=== PATIENT | male | born 1985 | race Hispanic/Latino ===

== ENCOUNTER 2018-12-17 11:55 | Emergency (ER) | payer SELFPAY ==
[~2018-12-17] VITALS: Ht 165.1 cm; Wt 90.7 kg
--- OUTSIDE RECORDS SUMMARY | 2018-12-17 12:00 | XMS REPORT ---
Author Author Admin, [place] Organization [facility] Address [address] [place] [phone] Phone Allergies, Adverse Reactions, Alerts Allergy Name Reaction Description Start Date Severity Status Provider No Known Allergies Russell Grubbs Conditions or Problems Problem Name Problem Code Onset Date Status Entry Date Provider Comment Standard Description Annotate Facial swelling 784.2 Active Ingrid Hidalgo MD Swelling, mass, or lump in head and neck Hx of allergic reaction V15.09 Active Ingrid Hidalgo MD Other allergy, other than to medicinal agents Std screening V74.5 Active Ingrid Hidalgo MD Screening examination for venereal disease NECK PAIN 723.1 Active Shauna Carranza MD Cervicalgia Annual exam V72.31 Active Shauna Carranza MD Routine gynecological examination Screening for diabetes mellitus V77.1 Active Shauna Carranza MD Screening for diabetes mellitus Screening for hyperlipidemia V77.91 Active Shauna Carranza MD Screening for lipoid disorders Screening for std V74.5 Active Shauna Carranza MD Screening examination for venereal disease Vaccination, flu V04.8 Active Shauna Carranza MD Need for prophylactic vaccination and inoculation against other viral diseases Constipation 564.00 Active Mango Galindo MD Constipation, unspecified advised on high fiber diet, and exercise, sending miralax Elevated blood pressure reading without diagnosis of hypertension 796.2 Active Mango Galindo MD Elevated blood pressure reading without diagnosis of hypertension has h/o HTN years ago, resolved with wt loss, has it again now after recent 80lbs wt gain, does not want to be on meds, will try lifestyle modification first. Headache 784.0 Active Mango Galindo MD Headache resolves with NSAID use, sending ibuprofen Tobacco use Active Mango Galindo MD Tobacco use disorder BIPOLAR I DISORDER, CURRENT EPISODE DEPRESSED, MODERATE Active Rashmi Garcia PMHNP Bipolar I disorder, most recent episode (or current) depressed, moderate GENERALIZED ANXIETY DISORDER Active Rashmi Garcia PMHNP Generalized anxiety disorder BMI 37.0-37.9 Active Mango Galindo MD Body Mass Index 37.0-37.9, adult Obesity Active Mango Galindo MD Obesity, unspecified Anxiety 300.00 Active Shauna Carranza MD Anxiety state, unspecified Chronic pain 338.29 Active Shauna Carranza MD Other chronic pain DEPRESSION 311 Active Shauna Carranza MD Depressive disorder, not elsewhere classified Hepatitis C 070.70 Active Shauna Carranza MD Unspecified viral hepatitis C without hepatic coma Hx of drug abuse V11.8 Active Shauna Carranza MD Personal history of other mental disorders 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 Ingrid Hidalgo MD Hereditary angioedema 277.6 Resolved Ingrid Hidalgo MD Other deficiencies of circulating enzymes Medication List Medication Instructions Start Date Stop Date Generic Name NDC Status Provider Patient Instruction MOBIC 15 MG ORAL TABLET 1 by mouth daily MELOXICAM 14209534231 Active Ingrid Hidalgo MD Active BACLOFEN 10 MG ORAL TABLET one tablet by mouth three times a day as needed for muscle spasm BACLOFEN 91289810142 Active Ingrid Hidalgo MD Active AMITRIPTYLINE HCL 50 MG ORAL TABLET Take 2 tablets By Mouth QHS AMITRIPTYLINE HCL 07361577633 Active Ingrid Hidalgo MD Active MIRALAX ORAL POWDER Disolve 17 grams in 8oz of liquid As Needed for constipation. POLYETHYLENE GLYCOL 3350 12127049175 Active Larry Mcwilliams MD (res) Active LAMICTAL 150 MG ORAL TABLET Take 2 tablets By Mouth QAM LAMOTRIGINE 28291355506 Active Ingrid Hidalgo MD Active PROPRANOLOL HCL 40 MG ORAL TABLET Take 1 tablet By Mouth BID PROPRANOLOL HCL 59322013609 Active Ingrid Hidalgo MD Active CLONAZEPAM 2 MG ORAL TABLET Take 1 tablet By Mouth BID As Needed for anxiety CLONAZEPAM 79398867017 Active Rashmi Garcia PMHNP Active AMBIEN 10 MG ORAL TABLET Take 1 tablet By Mouth QHS AMBIEN 10 MG ORAL TABLET 589644 ZOLPIDEM TARTRATE Inactive IBUPROFEN 800 MG ORAL TABLET 1 by mouth every 8 hours as needed for pain IBUPROFEN 800 MG ORAL TABLET 862892 IBUPROFEN Inactive AMITRIPTYLINE HCL 50 MG ORAL TABLET Take 1-2 By Mouth QHS AMITRIPTYLINE HCL 50 MG ORAL TABLET 009314 AMITRIPTYLINE HCL Inactive LAMICTAL 25 MG ORAL TABLET Take 1 tablet By Mouth for 2 weeks then take 2 tablets By Mouth QAM LAMICTAL 25 MG ORAL TABLET 582489 LAMOTRIGINE Inactive PAXIL CR 12.5 MG ORAL TABLET EXTENDED RELEASE 24 HOUR Take 1 tablet By Mouth QA for 1 week PAXIL CR 12.5 MG ORAL TABLET EXTENDED RELEASE 24 HOUR PAROXETINE HCL Inactive EFFEXOR XR 150 MG ORAL CAPSULE EXTENDED RELEASE 24 HOUR Take one tablet by mouth once daily EFFEXOR XR 150 MG ORAL CAPSULE EXTENDED RELEASE 24 HOUR VENLAFAXINE HCL Inactive GABAPENTIN 600 MG ORAL TABLET Take one tablet three times daily GABAPENTIN 600 MG ORAL TABLET 166676 GABAPENTIN Inactive AMBIEN 10 MG ORAL TABLET Take 1 tablet By Mouth QHS ZOLPIDEM TARTRATE 52361394310 No Longer Active Rashmi Garcia [facility] Active IBUPROFEN 800 MG ORAL TABLET 1 by mouth every 8 hours as needed for pain IBUPROFEN 00234122672 No Longer Active Shauna Carranza MD Active AMITRIPTYLINE HCL 50 MG ORAL TABLET Take 1-2 By Mouth QHS AMITRIPTYLINE HCL 87026490611 No Longer Active Rashmi Garcia [facility] Active LAMICTAL 25 MG ORAL TABLET Take 1 tablet By Mouth for 2 weeks then take 2 tablets By Mouth QAM LAMOTRIGINE 65591762771 No Longer Active Rashmi Garcia [facility] Active PAXIL CR 12.5 MG ORAL TABLET EXTENDED RELEASE 24 HOUR Take 1 tablet By Mouth QA for 1 week PAROXETINE HCL 43352370900 No Longer Active Rashmi Garcia [facility] Active EFFEXOR XR 150 MG ORAL CAPSULE EXTENDED RELEASE 24 HOUR Take one tablet by mouth once daily VENLAFAXINE HCL 86546320942 No Longer Active Shauna Carranza MD Active GABAPENTIN 600 MG ORAL TABLET Take one tablet three times daily GABAPENTIN 51208360394 No Longer Active Rashmi Garcia [facility] Active Immunizations Vaccine Administration Date Value Standard Description influenza immunization (Flu Vax) has been administered given influenza virus vaccine, unspecified formulation Vital Signs Date Name Value Unit Range Description blood pressure, diastolic, second observation 86 mm[Hg] BP patel blood pressure, diastolic 103 mm[Hg] BP patel blood pressure, systolic, second observation 154 mm[Hg] BP sys blood pressure, systolic 160 mm[Hg] BP sys pulse rate E&M 73 /min Heart rate pulse rate #2 72 Heart rate blood pressure, diastolic 84 mm[Hg] BP patel blood pressure, systolic 122 mm[Hg] BP sys pulse rate E&M 67 /min Heart rate blood pressure, diastolic 107 mm[Hg] BP patel blood pressure, systolic 151 mm[Hg] BP sys height E&M 67 [in_us] Bdy height pulse rate E&M 77 /min Heart rate weight E&M 237 [lb_av] Weight Measured blood pressure, diastolic 82 mm[Hg] BP patel blood pressure, systolic 129 mm[Hg] BP sys height E&M 67 [in_us] Bdy height pulse rate E&M 84 /min Heart rate respiratory rate E&M 19 /min Resp rate temperature E&M 98.1 [degF] Body temperature weight E&M 237 [lb_av] Weight Measured blood pressure, diastolic 87 mm[Hg] BP patel blood pressure, systolic 130 mm[Hg] BP sys height E&M 67 [in_us] Bdy height pulse rate E&M 67 /min Heart rate respiratory rate E&M 17 /min Resp rate temperature E&M 97.8 [degF] Body temperature weight E&M 242.50 [lb_av] Weight Measured blood pressure, diastolic 101 mm[Hg] BP patel blood pressure, systolic 151 mm[Hg] BP sys height E&M 67 [in_us] Bdy height pulse rate E&M 88 /min Heart rate weight E&M 246.20 [lb_av] Weight Measured blood pressure, diastolic 96 mm[Hg] BP patel blood pressure, systolic 159 mm[Hg] BP sys height E&M 67 [in_us] Bdy height pulse rate E&M 118 /min Heart rate weight E&M 249.38 [lb_av] Weight Measured Diagnostic Results Date Name Value Unit Range Description Lab Report: CBC With Differential/Platelet, Comp. Metabolic Panel (14), ... - Chemistry very low density lipoproteins 11 mg/dL 5-40 hepatitis B surface antigen Negative Negative chloride, serum 99 mmol/L 96-106 urea nitrogen, blood 10 mg/dL 6-20 Lab Report: CBC With Differential/Platelet, Comp. Metabolic Panel (14), ... - Hematology mean corpuscular hemoglobin concentration, RBC 34.1 G/DL % 31.5-35.7 erythrocyte (RBC) count 4.66 X10E6/UL 10*6/mm3 4.14-5.80 Lab Report: CBC With Differential/Platelet, Comp. Metabolic Panel (14), ... - Serology hepatitis C antibody, serum >11.0 0.0-0.9 Lab Report: CBC With Differential/Platelet, Comp. Metabolic Panel (14), ... - Chemistry Absolute Neutrophils 4.8 X10E3/UL 10*3/uL 1.4-7.0 LDL cholesterol, serum 55 mg/dL 0-99 urea nitrogen/creatinine ratio, serum 10 9-20 Lab Report: CBC With Differential/Platelet, Comp. Metabolic Panel (14), ... - Hematology mean corpuscular volume, RBC 93 fL 79-97 Lab Report: CBC With Differential/Platelet, Comp. Metabolic Panel (14), ... - Serology Hepatitis C virus (HCV) RNA, PCR, quantitative HCV Not Detected IU/mL [iU]/mL Lab Report: CBC With Differential/Platelet, Comp. Metabolic Panel (14), ... - Chemistry HDL cholesterol, serum 67 mg/dL >39 Lab Report: CBC With Differential/Platelet, Comp. Metabolic Panel (14), ... - Hematology monocytes as percent of blood leukocytes 8 % Not Estab. Lab Report: CBC With Differential/Platelet, Comp. Metabolic Panel (14), ... - Chemistry albumin/globulin ratio, serum 1.8 1.2-2.2 creatinine, serum 0.99 mg/dL 0.76-1.27 cholesterol, serum 133 mg/dL 100-199 Lab Report: CBC With Differential/Platelet, Comp. Metabolic Panel (14), ... - Serology hepatitis A antibody, IgM Negative Negative Lab Report: CBC With Differential/Platelet, Comp. Metabolic Panel (14), ... - Chemistry bilirubin, serum, total 0.3 mg/dL 0.0-1.2 Lab Report: CBC With Differential/Platelet, Comp. Metabolic Panel (14), ... - Hematology Eosinophil Absolute Count 0.5 X10E3/UL 10*3/uL 0.0-0.4 Lab Report: CBC With Differential/Platelet, Comp. Metabolic Panel (14), ... - Lab chlamydia DNA probe Negative Negative Lab Report: CBC With Differential/Platelet, Comp. Metabolic Panel (14), ... - Chemistry aspartate aminotransferase (SGOT), serum 24 U/L 0-40 Lab Report: CBC With Differential/Platelet, Comp. Metabolic Panel (14), ... - Hematology red blood cell distribution width 13.9 % 12.3-15.4 leukocyte count, blood 9.1 X10E3/UL 10*3/mm3 3.4-10.8 Lab Report: CBC With Differential/Platelet, Comp. Metabolic Panel (14), ... - Chemistry potassium, serum 4.8 mmol/L 3.5-5.2 albumin, serum 4.9 g/dL 3.5-5.5 immature granulocytes, percentage of total cells, blood 0 % Not Estab. Lab Report: CBC With Differential/Platelet, Comp. Metabolic Panel (14), ... - Hematology lymphocyte count, blood, automated 3.0 X10E3/UL 10*3/mm3 0.7-3.1 hematocrit, blood 43.4 % 37.5-51.0 Lab Report: CBC With Differential/Platelet, Comp. Metabolic Panel (14), ... - Microbiology Neisseria gonorrhoeae DNA probe Negative Negative Lab Report: CBC With Differential/Platelet, Comp. Metabolic Panel (14), ... - Chemistry sodium, serum 140 mmol/L 134-144 Lab Report: CBC With Differential/Platelet, Comp. Metabolic Panel (14), ... - Hematology neutrophils as percent of blood leukocytes 53 % Not Estab. basophils as percent of blood leukocytes 1 % Not Estab. Lab Report: CBC With Differential/Platelet, Comp. Metabolic Panel (14), ... - Serology rapid plasma reagin antibody, serum Non Reactive Non Reactive Lab Report: CBC With Differential/Platelet, Comp. Metabolic Panel (14), ... - Chemistry carbon dioxide, venous blood 26 mmol/L 20-29 triglyceride, serum, fasting 57 mg/dL 0-149 calcium, serum 9.6 mg/dL 8.7-10.2 alanine aminotransferase (SGPT), serum 17 U/L 0-44 Lab Report: CBC With Differential/Platelet, Comp. Metabolic Panel (14), ... - Hematology mean corpuscular hemoglobin, RBC 31.8 pg 26.6-33.0 Lab Report: CBC With Differential/Platelet, Comp. Metabolic Panel (14), ... - Chemistry protein, total, serum 7.7 g/dL 6.0-8.5 alkaline phosphatase, serum 82 U/L 39-117 Lab Report: CBC With Differential/Platelet, Comp. Metabolic Panel (14), ... - Hematology hemoglobin, blood 14.8 g/dL 13.0-17.7 lymphocytes as percent of blood leukocytes 33 % Not Estab. Lab Report: CBC With Differential/Platelet, Comp. Metabolic Panel (14), ... - Chemistry hemoglobin A1C, blood, as % of total hemoglobin 5.5 % 4.8-5.6 Lab Report: CBC With Differential/Platelet, Comp. Metabolic Panel (14), ... - Genetics/fertility eGFR if 114 mL/min/1.73m2 >59 Lab Report: CBC With Differential/Platelet, Comp. Metabolic Panel (14), ... - Serology hepatitis B virus core antibody, IgM, PT, serum, quantitative Negative Negative Lab Report: CBC With Differential/Platelet, Comp. Metabolic Panel (14), ... - Hematology basophil count, absolute 0.1 x10E3/uL 0.0-0.2 Lab Report: CBC With Differential/Platelet, Comp. Metabolic Panel (14), ... - Chemistry globulin, serum 2.8 1.5-4.5 Estimated Glomerular Filtration Rate (calc) 98 mL/min/1.73m2 >59 Lab Report: CBC With Differential/Platelet, Comp. Metabolic Panel (14), ... - Hematology eosinophils as percent of blood leukocytes 5 % Not Estab. Lab Report: CBC With Differential/Platelet, Comp. Metabolic Panel (14), ... - Chemistry blood glucose, random 93 mg/dL 65-99 Lab Report: CBC With Differential/Platelet, Comp. Metabolic Panel (14), ... - Hematology monocyte count, blood, automated 0.7 X10E3/UL 10*3/uL 0.1-0.9 platelet count 285 X10E3/UL 10*3/mm3 150-379 Encounters Date Encounter Provider Code Facility 11:28:49 CDT Est Patient Exp Problem - 53947 Rashmi Garcia [facility] CPT-60386 [facility] 13:34:20 CDT Est Patient Detailed - 54471 Ingrid Hidalgo MD CPT-31208 [facility] 22:59:39 CDT Est Patient Detailed - 10352 Ingrid Hidalgo MD CPT-48157 [facility] 08:22:39 CDT Est Patient Exp Problem - 03419 Rashmi Garcia PMHNP CPT-82865 [facility] 09:51:04 [employer] Est Patient Exp Problem - 29962 Rashmi Garcia PMHNP CPT-12796 [facility] 12:22:57 CDT Est Patient Exp Problem - 42647 Rashmi Garcia PMHNP CPT-83230 [facility] 15:46:53 CDT Est Patient Problem Focus - 15491 Shauna Carranza MD CPT-89188 [facility] 13:01:36 CDT Est Patient Exp Problem - 66209 Shauna Carranza MD CPT-14776 [facility] 09:21:28 [employer]IST[employer] Est Patient Exp Problem - 41286 Rashmi Garcia PMHN CPT-43109 [facility] 09:23:21 [employer] ASSISTANT Est Patient Exp Problem - 84375 [facility] 11:59:53 CDT Est Patient Exp Problem - 68125 Rashmi Garcia [facility] CPT-78550 [facility] 15:27:50 CDT Est Patient Exp Problem - 33247 Mango Galindo MD CPT-24369 [facility] 09:23:27 CDT Est Patient Exp Problem - 76863 Rashmi Garcia [facility] CPT-11645 [facility] 16:33:31 CDT Est Patient Exp Problem - 97328 Mango Galindo MD CPT-97224 [facility] 17:14:13 CDT Est Patient Exp Problem - 03959 Shauna Carranza MD CPT-19079 [facility] 14:37:58 CDT New Patient Exp Problem - 69048 Shauna Carranza MD CPT-99391 [facility] Procedures Code Procedure Name Date Entry Date Standard Description CPT-38224 IM or SQ Injection 13:34:20 CDT CPT-J1885 Injection, ketorolac tromethamine (toradol), per 15 mg 13:34:20 CDT CPT-J8499 Oral / SL / AR 13:34:20 CDT CPT-A9150 Diphenhydramine (Benadryl) 25 mg 13:34:20 CDT CPT-26257 INFLUENZA VACCINE QUADRIVALENT 3 YRS PLUS IM 11:50:27 [employer] CPT-05089 Est Patient Well Exam (18 - 39 Yrs) - 79968 11:50:15 [employer]TE[employer]ER ASSISTANT CPT-23552 Psychotherapy 30 (16-37*) min - 28967 (with patient and/or family member) 21:42:07 CDT CPT-83471 Diagnostic evaluation (no medical) - 56677 09:36:42 CDT CPT-09142 Diagnostic evaluation with medical - 26565 10:54:23 CDT
--- OUTSIDE RECORDS SUMMARY | 2018-12-17 12:01 | XMS REPORT ---
Author Author [facility] Address Unknown Phone Unavailable Care Team Providers Care Government Relations Analyst Name Role Phone Unavailable Unavailable Payers Payer Name Policy Type Policy Number Effective Date Expiration Date Problems This patient has no known problems. Allergies, Adverse Reactions, Alerts Allergy Name Allergy Type Status Severity Reaction(s) Onset Date Inactive Date Treating Clinician Comments No Known Allergies DA Active U 2018-12-01 00:00:00 No Known Allergies DA Active U 2018-10-09 00:00:00 No Known Allergies DA Active U 2015-10-30 00:00:00 Medications This patient has no known medications. Results Test Description Test Time Test Comments Text Results Atomic Results Result Comments BASIC METABOLIC PANEL 2018-12-15 08:52:00 SODIUM (test code=NA) 137 mEq/L 134-147 POTASSIUM (test code=K) 3.6 mEq/L 3.4-5.0 CHLORIDE (test code=CL) 105 mEq/L 100-108 CARBON DIOXIDE (test code=CO2) 25 mEq/L 21-33 ANION GAP (test code=GAP) 11 0-20 GLUCOSE (test code=GLU) 88 mg/dL 70-110 BLOOD UREA NITROGEN (test code=BUN) 15 mg/dL 7-18 GLOMERULAR FILTRATION RATE (test code=GFR) 110.0 105-110 Units of measure=ml/min/1.73 m2 CREATININE (test code=CREAT) 0.8 mg/dL 0.6-1.3 CALCIUM (test code=CA) 9.1 mg/dL 8.0-10.5 CBC W/AUTO [id number] 07:23:00* Test Item Value Reference Range Comments WHITE BLOOD CELL (test code=WBC) 9.50 x10 3/uL 4.5-11.0 RED BLOOD CELL (test code=RBC) 4.57 x10 6/uL 4.00-5.60 HEMOGLOBIN (test code=HGB) 14.1 g/dL 12.5-16.9 HEMATOCRIT (test code=HCT) 42.8 % 37.5-50.7 MEAN CELL VOLUME (test code=MCV) 93.7 fL 81.0-99.0 MEAN CELL HGB (test code=MCH) 30.9 pg 27.0-33.0 MEAN CELL HGB CONCETRATION (test code=MCHC) 32.9 g/dL 33.0-37.0 RED CELL DISTRIBUTION WIDTH CV (test code=RDW) 13.1 % 11.5-14.5 RED CELL DISTRIBUTION WIDTH SD (test code=RDW-SD) 45.0 fL 37.0-54.0 PLATELET COUNT (test code=PLT) 389 x10 3/uL 150-400 MEAN PLATELET VOLUME (test code=MPV) 10.9 fL 7.0-9.0 NEUTROPHIL % (test code=NT%) 52.5 % 56.0-77.0 IMMATURE GRANULOCYTE % (test code=IG%) 0.8 % 0.0-2.0 LYMPHOCYTE % (test code=LY%) 34.2 % 14.0-32.0 MONOCYTE % (test code=MO%) 9.4 % 4.8-9.0 EOSINOPHIL % (test code=EO%) 2.5 % 0.3-3.7 BASOPHIL % (test code=BA%) 0.6 % 0.0-2.0 NUCLEATED RBC % (test code=NRBC%) 0.0 % 0-0 NEUTROPHIL # (test code=NT#) 4.98 x10 3/uL 2.0-7.6 IMMATURE GRANULOCYTE # (test code=IG#) 0.08 x10 3/uL 0.00-0.03 LYMPHOCYTE # (test code=LY#) 3.25 x10 3/uL 1.0-3.8 MONOCYTE # (test code=MO#) 0.89 x10 3/uL 0.1-0.8 EOSINOPHIL # (test code=EO#) 0.24 x10 3/uL 0.0-0.2 BASOPHIL # (test code=BA#) 0.06 x10 3/uL 0.0-0.2 NUCLEATED RBC # (test code=NRBC#) 0.00 x10 3/uL 0.0-0.1 MANUAL DIFF REQUIRED (test code=MDIFF) NO BASIC METABOLIC [id number] 09:10:00* Test Item Value Reference Range Comments SODIUM (test code=NA) 139 mEq/L 134-147 POTASSIUM (test code=K) 3.5 mEq/L 3.4-5.0 CHLORIDE (test code=CL) 106 mEq/L 100-108 CARBON DIOXIDE (test code=CO2) 27 mEq/L 21-33 ANION GAP (test code=GAP) 10 0-20 GLUCOSE (test code=GLU) 107 mg/dL 70-110 BLOOD UREA NITROGEN (test code=BUN) 16 mg/dL 7-18 GLOMERULAR FILTRATION RATE (test code=GFR) 96.0 105-110 Units of measure=ml/min/1.73 m2 CREATININE (test code=CREAT) 0.9 mg/dL 0.6-1.3 CALCIUM (test code=CA) 9.1 mg/dL 8.0-10.5 CBC W/AUTO [id number] 08:30:00* Test Item Value Reference Range Comments WHITE BLOOD CELL (test code=WBC) 8.82 x10 3/uL 4.5-11.0 RED BLOOD CELL (test code=RBC) 4.56 x10 6/uL 4.00-5.60 HEMOGLOBIN (test code=HGB) 14.3 g/dL 12.5-16.9 HEMATOCRIT (test code=HCT) 43.0 % 37.5-50.7 MEAN CELL VOLUME (test code=MCV) 94.3 fL 81.0-99.0 MEAN CELL HGB (test code=MCH) 31.4 pg 27.0-33.0 MEAN CELL HGB CONCETRATION (test code=MCHC) 33.3 g/dL 33.0-37.0 RED CELL DISTRIBUTION WIDTH CV (test code=RDW) 13.2 % 11.5-14.5 RED CELL DISTRIBUTION WIDTH SD (test code=RDW-SD) 45.6 fL 37.0-54.0 PLATELET COUNT (test code=PLT) 289 x10 3/uL 150-400 MEAN PLATELET VOLUME (test code=MPV) 10.6 fL 7.0-9.0 NEUTROPHIL % (test code=NT%) 49.9 % 56.0-77.0 IMMATURE GRANULOCYTE % (test code=IG%) 2.2 % 0.0-2.0 LYMPHOCYTE % (test code=LY%) 32.0 % 14.0-32.0 MONOCYTE % (test code=MO%) 11.6 % 4.8-9.0 EOSINOPHIL % (test code=EO%) 3.7 % 0.3-3.7 BASOPHIL % (test code=BA%) 0.6 % 0.0-2.0 NUCLEATED RBC % (test code=NRBC%) 0.0 % 0-0 NEUTROPHIL # (test code=NT#) 4.41 x10 3/uL 2.0-7.6 IMMATURE GRANULOCYTE # (test code=IG#) 0.19 x10 3/uL 0.00-0.03 LYMPHOCYTE # (test code=LY#) 2.82 x10 3/uL 1.0-3.8 MONOCYTE # (test code=MO#) 1.02 x10 3/uL 0.1-0.8 EOSINOPHIL # (test code=EO#) 0.33 x10 3/uL 0.0-0.2 BASOPHIL # (test code=BA#) 0.05 x10 3/uL 0.0-0.2 NUCLEATED RBC # (test code=NRBC#) 0.00 x10 3/uL 0.0-0.1 MANUAL DIFF REQUIRED (test code=MDIFF) NO BASIC METABOLIC [id number] 06:02:00* Test Item Value Reference Range Comments SODIUM (test code=NA) 137 mEq/L 134-147 POTASSIUM (test code=K) 3.9 mEq/L 3.4-5.0 CHLORIDE (test code=CL) 104 mEq/L 100-108 CARBON DIOXIDE (test code=CO2) 29 mEq/L 21-33 ANION GAP (test code=GAP) 8 0-20 GLUCOSE (test code=GLU) 87 mg/dL 70-110 BLOOD UREA NITROGEN (test code=BUN) 16 mg/dL 7-18 GLOMERULAR FILTRATION RATE (test code=GFR) 110.0 105-110 Units of measure=ml/min/1.73 m2 CREATININE (test code=CREAT) 0.8 mg/dL 0.6-1.3 CALCIUM (test code=CA) 9.2 mg/dL 8.0-10.5 CBC W/AUTO [id number] 05:22:00* Test Item Value Reference Range Comments WHITE BLOOD CELL (test code=WBC) 8.73 x10 3/uL 4.5-11.0 RED BLOOD CELL (test code=RBC) 4.56 x10 6/uL 4.00-5.60 HEMOGLOBIN (test code=HGB) 14.2 g/dL 12.5-16.9 HEMATOCRIT (test code=HCT) 42.8 % 37.5-50.7 MEAN CELL VOLUME (test code=MCV) 93.9 fL 81.0-99.0 MEAN CELL HGB (test code=MCH) 31.1 pg 27.0-33.0 MEAN CELL HGB CONCETRATION (test code=MCHC) 33.2 g/dL 33.0-37.0 RED CELL DISTRIBUTION WIDTH CV (test code=RDW) 13.6 % 11.5-14.5 RED CELL DISTRIBUTION WIDTH SD (test code=RDW-SD) 47.0 fL 37.0-54.0 PLATELET COUNT (test code=PLT) 269 x10 3/uL 150-400 MEAN PLATELET VOLUME (test code=MPV) 10.8 fL 7.0-9.0 NEUTROPHIL % (test code=NT%) 49.9 % 56.0-77.0 IMMATURE GRANULOCYTE % (test code=IG%) 3.0 % 0.0-2.0 LYMPHOCYTE % (test code=LY%) 30.9 % 14.0-32.0 MONOCYTE % (test code=MO%) 9.5 % 4.8-9.0 EOSINOPHIL % (test code=EO%) 5.8 % 0.3-3.7 BASOPHIL % (test code=BA%) 0.9 % 0.0-2.0 NUCLEATED RBC % (test code=NRBC%) 0.0 % 0-0 NEUTROPHIL # (test code=NT#) 4.35 x10 3/uL 2.0-7.6 IMMATURE GRANULOCYTE # (test code=IG#) 0.26 x10 3/uL 0.00-0.03 LYMPHOCYTE # (test code=LY#) 2.70 x10 3/uL 1.0-3.8 MONOCYTE # (test code=MO#) 0.83 x10 3/uL 0.1-0.8 EOSINOPHIL # (test code=EO#) 0.51 x10 3/uL 0.0-0.2 BASOPHIL # (test code=BA#) 0.08 x10 3/uL 0.0-0.2 NUCLEATED RBC # (test code=NRBC#) 0.00 x10 3/uL 0.0-0.1 MANUAL DIFF REQUIRED (test code=MDIFF) NO [id number] 12:11:00* Test Item Value Reference Range Comments POTASSIUM (test code=K) 4.5 mEq/L 3.4-5.0 SPECIMEN 1+ HEMOLYZED.Results known to be adversely affected by hemolysis are: Potassium Magnesium LDH Phosphorus [id number] 12:11:00* Test Item Value Reference Range Comments PHOSPHOROUS (test code=PHOS) 3.3 mg/dL 2.5-4.9 [id number] 12:05:00* Test Item Value Reference Range Comments POTASSIUM (test code=K) 4.5 mEq/L 3.4-5.0 SPECIMEN 1+ HEMOLYZED.Results known to be adversely affected by hemolysis are: Potassium Magnesium LDH Phosphorus [id number] 12:05:00* Test Item Value Reference Range Comments PHOSPHOROUS (test code=PHOS) mg/dL 2.5-4.9 [id number] 16:33:00* Test Item Value Reference Range Comments POTASSIUM (test code=K) 3.8 mEq/L 3.4-5.0 BASIC METABOLIC [id number] 04:24:00* Test Item Value Reference Range Comments SODIUM (test code=NA) 141 mEq/L 134-147 POTASSIUM (test code=K) 2.9 mEq/L 3.4-5.0 CHLORIDE (test code=CL) 106 mEq/L 100-108 CARBON DIOXIDE (test code=CO2) 31 mEq/L 21-33 ANION GAP (test code=GAP) 7 0-20 GLUCOSE (test code=GLU) 105 mg/dL 70-110 BLOOD UREA NITROGEN (test code=BUN) 3 mg/dL 7-18 GLOMERULAR FILTRATION RATE (test code=GFR) 153.3 105-110 Units of measure=ml/min/1.73 m2 CREATININE (test code=CREAT) 0.6 mg/dL 0.6-1.3 CALCIUM (test code=CA) 7.9 mg/dL 8.0-10.5 [id number] 04:24:00* Test Item Value Reference Range Comments PHOSPHOROUS (test code=PHOS) 2.3 mg/dL 2.5-4.9 [id number] 04:24:00* Test Item Value Reference Range Comments MAGNESIUM (test code=MAG) 2.20 mg/dL 1.8-2.4 HEPATIC FUNCTION [id number] 04:24:00* Test Item Value Reference Range Comments TOTAL PROTEIN (test code=PROT) 6.3 g/dL 6.4-8.2 ALBUMIN (test code=ALB) 3.00 g/dL 3.4-5.0 BILIRUBIN TOTAL (test code=BILT) 0.30 mg/dL 0.0-1.0 BILIRUBIN DIRECT (test code=BILD) < 0.10 MG/DL 0.0-0.30 BILIRUBIN INDIRECT (test code=BILIND) 0.20 MG/DL SGOT/AST (test code=AST) 11 IUnit/L 15-37 SGPT/ALT (test code=ALT) 19 IUnit/L 15-65 ALKALINE PHOSPHATASE TOTAL (test code=ALKP) 75 IUnit/L 20-125 CBC W/AUTO [id number] 04:05:00* Test Item Value Reference Range Comments WHITE BLOOD CELL (test code=WBC) 8.28 x10 3/uL 4.5-11.0 RED BLOOD CELL (test code=RBC) 4.17 x10 6/uL 4.00-5.60 HEMOGLOBIN (test code=HGB) 12.9 g/dL 12.5-16.9 HEMATOCRIT (test code=HCT) 39.0 % 37.5-50.7 MEAN CELL VOLUME (test code=MCV) 93.5 fL 81.0-99.0 MEAN CELL HGB (test code=MCH) 30.9 pg 27.0-33.0 MEAN CELL HGB CONCETRATION (test code=MCHC) 33.1 g/dL 33.0-37.0 RED CELL DISTRIBUTION WIDTH CV (test code=RDW) 13.6 % 11.5-14.5 RED CELL DISTRIBUTION WIDTH SD (test code=RDW-SD) 46.7 fL 37.0-54.0 PLATELET COUNT (test code=PLT) 167 x10 3/uL 150-400 MEAN PLATELET VOLUME (test code=MPV) 10.7 fL 7.0-9.0 NEUTROPHIL % (test code=NT%) 59.8 % 56.0-77.0 IMMATURE GRANULOCYTE % (test code=IG%) 0.6 % 0.0-2.0 LYMPHOCYTE % (test code=LY%) 27.3 % 14.0-32.0 MONOCYTE % (test code=MO%) 9.2 % 4.8-9.0 EOSINOPHIL % (test code=EO%) 2.7 % 0.3-3.7 BASOPHIL % (test code=BA%) 0.4 % 0.0-2.0 NUCLEATED RBC % (test code=NRBC%) 0.0 % 0-0 NEUTROPHIL # (test code=NT#) 4.96 x10 3/uL 2.0-7.6 IMMATURE GRANULOCYTE # (test code=IG#) 0.05 x10 3/uL 0.00-0.03 LYMPHOCYTE # (test code=LY#) 2.26 x10 3/uL 1.0-3.8 MONOCYTE # (test code=MO#) 0.76 x10 3/uL 0.1-0.8 EOSINOPHIL # (test code=EO#) 0.22 x10 3/uL 0.0-0.2 BASOPHIL # (test code=BA#) 0.03 x10 3/uL 0.0-0.2 NUCLEATED RBC # (test code=NRBC#) 0.00 x10 3/uL 0.0-0.1 MANUAL DIFF REQUIRED (test code=MDIFF) NO VENOUS BLOOD [id number] 17:44:00* Test Item Value Reference Range Comments VENOUS BLOOD GAS PH (test code=PHV) 7.45 7.33-7.45 VENOUS BLOOD GAS PCO2 (test code=PCO2V) 40 mmHg 43-47 VENOUS BLOOD GAS PO2 (test code=PO2V) 50 mmHg 10-50 VBG HCO3 (test code=HCO3V) 27.5 mmol/L 22-27 VBG BASE EXCESS (test code=KECIA) 3.0 mmol/L -4.0-4.0 VENOUS BLOOD GAS O2 SAT. (test code=O2SATV) 87 % 60-80 VENOUS BLOOD GAS DELIVERY (test code=DELV) Room Air Performed by certified vortex operator at [facility] VENOUS BLOOD GAS TEMP (test code=TEMPV) 98.0 F VENOUS BLOOD GAS SITE (test code=SITEV) R Brach VENOUS TCO2 (test code=TCO2V) 29 BASIC METABOLIC [id number] 17:07:00* Test Item Value Reference Range Comments SODIUM (test code=NA) 141 mEq/L 134-147 POTASSIUM (test code=K) 3.0 mEq/L 3.4-5.0 CHLORIDE (test code=CL) 105 mEq/L 100-108 CARBON DIOXIDE (test code=CO2) 29 mEq/L 21-33 ANION GAP (test code=GAP) 10 0-20 GLUCOSE (test code=GLU) 127 mg/dL 70-110 BLOOD UREA NITROGEN (test code=BUN) 4 mg/dL 7-18 GLOMERULAR FILTRATION RATE (test code=GFR) 128.3 105-110 Units of measure=ml/min/1.73 m2 CREATININE (test code=CREAT) 0.7 mg/dL 0.6-1.3 CALCIUM (test code=CA) 7.7 mg/dL 8.0-10.5 [id number] 17:07:00* Test Item Value Reference Range Comments PHOSPHOROUS (test code=PHOS) 1.7 mg/dL 2.5-4.9 [id number] 17:07:00* Test Item Value Reference Range Comments MAGNESIUM (test code=MAG) 2.20 mg/dL 1.8-2.4 CALCIUM [id number] 17:07:00* Test Item Value Reference Range Comments CALCIUM IONIZED (test code=OMAYRA) MMOL/L 1.12-1.32 BASIC METABOLIC [id number] 17:07:00* Test Item Value Reference Range Comments SODIUM (test code=NA) 141 mEq/L 134-147 POTASSIUM (test code=K) 3.0 mEq/L 3.4-5.0 CHLORIDE (test code=CL) 105 mEq/L 100-108 CARBON DIOXIDE (test code=CO2) 29 mEq/L 21-33 ANION GAP (test code=GAP) 10 0-20 GLUCOSE (test code=GLU) 127 mg/dL 70-110 BLOOD UREA NITROGEN (test code=BUN) 4 mg/dL 7-18 GLOMERULAR FILTRATION RATE (test code=GFR) 128.3 105-110 Units of measure=ml/min/1.73 m2 CREATININE (test code=CREAT) 0.7 mg/dL 0.6-1.3 CALCIUM (test code=CA) 7.7 mg/dL 8.0-10.5 [id number] 17:07:00* Test Item Value Reference Range Comments PHOSPHOROUS (test code=PHOS) 1.7 mg/dL 2.5-4.9 [id number] 17:07:00* Test Item Value Reference Range Comments MAGNESIUM (test code=MAG) 2.20 mg/dL 1.8-2.4 CALCIUM [id number] 17:07:00* Test Item Value Reference Range Comments CALCIUM IONIZED (test code=OMAYRA) 1.10 MMOL/L 1.12-1.32 HEPATIC FUNCTION [id number] 11:27:00* Test Item Value Reference Range Comments TOTAL PROTEIN (test code=PROT) 6.1 g/dL 6.4-8.2 ALBUMIN (test code=ALB) 3.10 g/dL 3.4-5.0 BILIRUBIN TOTAL (test code=BILT) 0.40 mg/dL 0.0-1.0 BILIRUBIN DIRECT (test code=BILD) 0.10 MG/DL 0.0-0.30 BILIRUBIN INDIRECT (test code=BILIND) 0.30 MG/DL SGOT/AST (test code=AST) 19 IUnit/L 15-37 SGPT/ALT (test code=ALT) 23 IUnit/L 15-65 ALKALINE PHOSPHATASE TOTAL (test code=ALKP) 79 IUnit/L 20-125 - XR CHEST 1 [id number] 08:21:00 FAX: Cordell Obregon MD [place]: St: ADM FAX: Jessenia Olvera [phone] Name: ARCELIA JOHNSON [facility] : 1985 Age/S: 33/M [address] [place] [address] Unit #: [id number] Loc: [address] [address] Phys: Cordell Obregon MD Acct: [id number] Dis Date: Status: ADM IN PHONE #: [phone] Exam Date: 12/02/2018 0546 FAX #: [phone] Reason: PNEUMONIA EXAMS: CPT CODE: [id number] XR CHEST 1 V [id number] Study: - XR CHEST 1 V 12/02/2018 5:00 AM Patient Name: ARCELIA JOHNSON MR: [id number] : 1985; Age: 33 years y/o Male Ordering Physician: Cordell Obregon MD Clinical Indication: PNEUMONIA Comparison: None FINDINGS LUNGS: The hypoinflated lungs are clear of consolidation, pleural effusion, and pneumothorax. HEART AND MEDIASTINUM: Mildly enlarged heart. LINES: None. OSSEOUS STRUCTURES: No fracture, dislocation, or suspicious focal osseous lesion. OTHER: None. IMPRESSION: Mild cardiomegaly with or without pericardial effusion SL: [id number] at 0821 Reported and signed by: Fili Dupree M.D. CC: Cordell Obregon MD; Kimmy Olvera MD Technologist: Jazmyne Todd RT(R) [facility] Date/Time/By: 12/02/2018 (0821) : By: [email or web address] Orig Print D/T: S: 12/02/2018 (8988) PAGE 1 Signed Report BASIC METABOLIC [id number] 05:12:00* Test Item Value Reference Range Comments SODIUM (test code=NA) 140 mEq/L 134-147 POTASSIUM (test code=K) 2.8 mEq/L 3.4-5.0 CHLORIDE (test code=CL) 103 mEq/L 100-108 CARBON DIOXIDE (test code=CO2) 29 mEq/L 21-33 ANION GAP (test code=GAP) 11 0-20 GLUCOSE (test code=GLU) 114 mg/dL 70-110 BLOOD UREA NITROGEN (test code=BUN) 9 mg/dL 7-18 GLOMERULAR FILTRATION RATE (test code=GFR) 189.2 105-110 Units of measure=ml/min/1.73 m2 CREATININE (test code=CREAT) 0.5 mg/dL 0.6-1.3 CALCIUM (test code=CA) 7.5 mg/dL 8.0-10.5 [id number] 05:12:00* Test Item Value Reference Range Comments PHOSPHOROUS (test code=PHOS) 2.0 mg/dL 2.5-4.9 [id number] 05:12:00* Test Item Value Reference Range Comments MAGNESIUM (test code=MAG) 2.20 mg/dL 1.8-2.4 CBC W/AUTO [id number] 04:34:00* Test Item Value Reference Range Comments WHITE BLOOD CELL (test code=WBC) 14.07 x10 3/uL 4.5-11.0 RED BLOOD CELL (test code=RBC) 4.10 x10 6/uL 4.00-5.60 HEMOGLOBIN (test code=HGB) 12.8 g/dL 12.5-16.9 HEMATOCRIT (test code=HCT) 38.1 % 37.5-50.7 MEAN CELL VOLUME (test code=MCV) 92.9 fL 81.0-99.0 MEAN CELL HGB (test code=MCH) 31.2 pg 27.0-33.0 MEAN CELL HGB CONCETRATION (test code=MCHC) 33.6 g/dL 33.0-37.0 RED CELL DISTRIBUTION WIDTH CV (test code=RDW) 13.4 % 11.5-14.5 RED CELL DISTRIBUTION WIDTH SD (test code=RDW-SD) 45.6 fL 37.0-54.0 PLATELET COUNT (test code=PLT) 178 x10 3/uL 150-400 MEAN PLATELET VOLUME (test code=MPV) 10.7 fL 7.0-9.0 NEUTROPHIL % (test code=NT%) 82.7 % 56.0-77.0 IMMATURE GRANULOCYTE % (test code=IG%) 0.5 % 0.0-2.0 LYMPHOCYTE % (test code=LY%) 8.3 % 14.0-32.0 MONOCYTE % (test code=MO%) 7.9 % 4.8-9.0 EOSINOPHIL % (test code=EO%) 0.4 % 0.3-3.7 BASOPHIL % (test code=BA%) 0.2 % 0.0-2.0 NUCLEATED RBC % (test code=NRBC%) 0.0 % 0-0 NEUTROPHIL # (test code=NT#) 11.64 x10 3/uL 2.0-7.6 IMMATURE GRANULOCYTE # (test code=IG#) 0.07 x10 3/uL 0.00-0.03 LYMPHOCYTE # (test code=LY#) 1.17 x10 3/uL 1.0-3.8 MONOCYTE # (test code=MO#) 1.11 x10 3/uL 0.1-0.8 EOSINOPHIL # (test code=EO#) 0.05 x10 3/uL 0.0-0.2 BASOPHIL # (test code=BA#) 0.03 x10 3/uL 0.0-0.2 NUCLEATED RBC # (test code=NRBC#) 0.00 x10 3/uL 0.0-0.1 MANUAL DIFF REQUIRED (test code=MDIFF) NO ARTERIAL BLOOD [id number] 16:46:00* Test Item Value Reference Range Comments ARTERIAL BLOOD GAS PH (test code=PHA) 7.416 7.35-7.45 ARTERIAL BLOOD GAS PCO2 (test code=PCO2A) 39.8 mmHg 35-45 ARTERIAL BLOOD GAS PO2 (test code=PO2A) 59 mmHg 80-100 BICARBONATE TOTAL HCO3 (test code=HCO3) 25.7 mmol/L 22.0-26.0 BASE EXCESS (test code=GALILEO) 1.0 mmol/L -4-4 ABG O2 SATURATION (test code=SATA) 91 % 90-100 FIO2 (test code=FIO2A) 50 % ABG DELIVERY (test code=DMITRI) Vent ABG VENT MODE (test code=MODEA) AC v con ABG VENT RESP RATE (test code=RRA) 18 /MIN ABG TIDAL VOLUME (test code=TVA) 500 ml ABG PEEP (test code=PEEPA) 5 cmH2O Performed by certified vortex operator at [facility] ABG TEMPERATURE (test code=TEMPA) 98.0 F ABG SITE (test code=SITEA) R Rad PREDICTED AA GRADIENT (test code=AP) 80 PREDICTED PO2 (test code=OP) 229 a/A RATIO (test code=RATIO) 0.19 TCO2 ARTERIAL (test code=TCO2A) 27 A-A GRADIENT (test code=AAGRADE) 250 COMPREHENSIVE METABOLIC [id number] 11:58:00* Test Item Value Reference Range Comments SODIUM (test code=NA) 140 mEq/L 134-147 POTASSIUM (test code=K) 3.0 mEq/L 3.4-5.0 CHLORIDE (test code=CL) 103 mEq/L 100-108 CARBON DIOXIDE (test code=CO2) 27 mEq/L 21-33 ANION GAP (test code=GAP) 13 0-20 GLUCOSE (test code=GLU) 141 mg/dL 70-110 BLOOD UREA NITROGEN (test code=BUN) 15 mg/dL 7-18 GLOMERULAR FILTRATION RATE (test code=GFR) 110.0 105-110 Units of measure=ml/min/1.73 m2 CREATININE (test code=CREAT) 0.8 mg/dL 0.6-1.3 TOTAL PROTEIN (test code=PROT) 6.7 g/dL 6.4-8.2 ALBUMIN (test code=ALB) 3.60 g/dL 3.4-5.0 CALCIUM (test code=CA) 7.8 mg/dL 8.0-10.5 BILIRUBIN TOTAL (test code=BILT) 0.70 mg/dL 0.0-1.0 SGOT/AST (test code=AST) 30 IUnit/L 15-37 SGPT/ALT (test code=ALT) 25 IUnit/L 15-65 ALKALINE PHOSPHATASE TOTAL (test code=ALKP) 85 IUnit/L 20-125 [id number] 11:58:00* Test Item Value Reference Range Comments PHOSPHOROUS (test code=PHOS) 1.8 mg/dL 2.5-4.9 CALCIUM [id number] 11:58:00* Test Item Value Reference Range Comments CALCIUM IONIZED (test code=OMAYRA) 1.05 MMOL/L 1.12-1.32 COMPREHENSIVE METABOLIC [id number] 11:56:00* Test Item Value Reference Range Comments SODIUM (test code=NA) 140 mEq/L 134-147 POTASSIUM (test code=K) 3.0 mEq/L 3.4-5.0 CHLORIDE (test code=CL) 103 mEq/L 100-108 CARBON DIOXIDE (test code=CO2) 27 mEq/L 21-33 ANION GAP (test code=GAP) 13 0-20 GLUCOSE (test code=GLU) 141 mg/dL 70-110 BLOOD UREA NITROGEN (test code=BUN) 15 mg/dL 7-18 GLOMERULAR FILTRATION RATE (test code=GFR) 110.0 105-110 Units of measure=ml/min/1.73 m2 CREATININE (test code=CREAT) 0.8 mg/dL 0.6-1.3 TOTAL PROTEIN (test code=PROT) g/dL 6.4-8.2 ALBUMIN (test code=ALB) 3.60 g/dL 3.4-5.0 CALCIUM (test code=CA) 7.8 mg/dL 8.0-10.5 BILIRUBIN TOTAL (test code=BILT) mg/dL 0.0-1.0 SGOT/AST (test code=AST) 30 IUnit/L 15-37 SGPT/ALT (test code=ALT) 25 IUnit/L 15-65 ALKALINE PHOSPHATASE TOTAL (test code=ALKP) IUnit/L 20-125 [id number] 11:56:00* Test Item Value Reference Range Comments PHOSPHOROUS (test code=PHOS) 1.8 mg/dL 2.5-4.9 CALCIUM [id number] 11:56:00* Test Item Value Reference Range Comments CALCIUM IONIZED (test code=OMAYRA) 1.05 MMOL/L 1.12-1.32 COMPREHENSIVE METABOLIC [id number] 11:44:00* Test Item Value Reference Range Comments SODIUM (test code=NA) mEq/L 134-147 POTASSIUM (test code=K) mEq/L 3.4-5.0 CHLORIDE (test code=CL) mEq/L 100-108 CARBON DIOXIDE (test code=CO2) mEq/L 21-33 ANION GAP (test code=GAP) 0-20 GLUCOSE (test code=GLU) mg/dL 70-110 BLOOD UREA NITROGEN (test code=BUN) mg/dL 7-18 GLOMERULAR FILTRATION RATE (test code=GFR) 105-110 CREATININE (test code=CREAT) mg/dL 0.6-1.3 TOTAL PROTEIN (test code=PROT) g/dL 6.4-8.2 ALBUMIN (test code=ALB) g/dL 3.4-5.0 CALCIUM (test code=CA) mg/dL 8.0-10.5 BILIRUBIN TOTAL (test code=BILT) mg/dL 0.0-1.0 SGOT/AST (test code=AST) IUnit/L 15-37 SGPT/ALT (test code=ALT) IUnit/L 15-65 ALKALINE PHOSPHATASE TOTAL (test code=ALKP) IUnit/L 20-125 [id number] 11:44:00* Test Item Value Reference Range Comments PHOSPHOROUS (test code=PHOS) mg/dL 2.5-4.9 CALCIUM [id number] 11:44:00* Test Item Value Reference Range Comments CALCIUM IONIZED (test code=OMAYRA) 1.05 MMOL/L 1.12-1.32 PROTHROMBIN [id number] 11:40:00* Test Item Value Reference Range Comments PROTHROMBIN TIME PATIENT (test code=PTP) 12.7 SECONDS 9.3-12.9 INTERNATIONAL NORMAL RATIO (test code=INR) 1.1 0.8-1.2 TARGET INR BY INDICATION Indication INR1. Prophylaxis of venous thrombosis 2.0 - 3.0 (orthopedic surgery), Prophylaxis of venous thrombosis (other than high-risk surgery), Treatment of Deep Vein Thrombosis/Pulmonary Embolism, Prevention of systemic embolism - Tissue heart valves, Acute Myocardial Infarction (to prevent systemic embolism), Valvular heart disease, Atrial Fibrillation, [place]aflet mechanical valve in aortic position.2. Mechanical prosthetic valves (high risk), 2.5 - 3.5 Presence of Lupus Anticoagulant or Antiphospholipid Antibodies, Prevention of systemic embolism - Acute Myocardial Infarction (to prevent recurrent infarct). CBC W/AUTO [id number] 11:36:00* Test Item Value Reference Range Comments WHITE BLOOD CELL (test code=WBC) 12.40 x10 3/uL 4.5-11.0 RED BLOOD CELL (test code=RBC) 4.41 x10 6/uL 4.00-5.60 HEMOGLOBIN (test code=HGB) 13.7 g/dL 12.5-16.9 HEMATOCRIT (test code=HCT) 41.3 % 37.5-50.7 MEAN CELL VOLUME (test code=MCV) 93.7 fL 81.0-99.0 MEAN CELL HGB (test code=MCH) 31.1 pg 27.0-33.0 MEAN CELL HGB CONCETRATION (test code=MCHC) 33.2 g/dL 33.0-37.0 RED CELL DISTRIBUTION WIDTH CV (test code=RDW) 13.2 % 11.5-14.5 RED CELL DISTRIBUTION WIDTH SD (test code=RDW-SD) 45.0 fL 37.0-54.0 PLATELET COUNT (test code=PLT) 213 x10 3/uL 150-400 MEAN PLATELET VOLUME (test code=MPV) 11.1 fL 7.0-9.0 NEUTROPHIL % (test code=NT%) 85.6 % 56.0-77.0 IMMATURE GRANULOCYTE % (test code=IG%) 0.5 % 0.0-2.0 LYMPHOCYTE % (test code=LY%) 9.0 % 14.0-32.0 MONOCYTE % (test code=MO%) 4.6 % 4.8-9.0 EOSINOPHIL % (test code=EO%) 0.1 % 0.3-3.7 BASOPHIL % (test code=BA%) 0.2 % 0.0-2.0 NUCLEATED RBC % (test code=NRBC%) 0.0 % 0-0 NEUTROPHIL # (test code=NT#) 10.63 x10 3/uL 2.0-7.6 IMMATURE GRANULOCYTE # (test code=IG#) 0.06 x10 3/uL 0.00-0.03 LYMPHOCYTE # (test code=LY#) 1.11 x10 3/uL 1.0-3.8 MONOCYTE # (test code=MO#) 0.57 x10 3/uL 0.1-0.8 EOSINOPHIL # (test code=EO#) 0.01 x10 3/uL 0.0-0.2 BASOPHIL # (test code=BA#) 0.02 x10 3/uL 0.0-0.2 NUCLEATED RBC # (test code=NRBC#) 0.00 x10 3/uL 0.0-0.1 MANUAL DIFF REQUIRED (test code=MDIFF) NO - XR CHEST 1 [id number] 09:38:00 FAX: Sylvie Kahn MD [phone] [place]: St: ADM Name: ARCELIA NATARAJAN [facility] : [birth year] Age/S: 33/M [address] [place] [address] Bl Unit #: [id number] Loc: [place] [address] Phys: Sylvie Belle MD Acct: [id number] Dis Date: Status: ADM IN PHONE #: [phone] Exam Date: 12/01/2018930 FAX #: [phone] Reason: postintubation EXAMS: CPT CODE: [id number] XR CHEST 1 V [id number] PROCEDURE: Chest Radiograph. Clinical Indication: Intubation, overdose. Comparison: None. FINDINGS: The chest shows minimal vascular con gestion. There is opacity at the left lung base and desilhouetting of the left hemidiaphragm which may represent components of atelectasis, consoli dation and pleural fluid. An endotracheal tube is present with tip approx imately 4 cm cephalad of the brianda. An NG tube is present with tip in th e expected location of the body of the stomach. The cardiac silhouette is upper limits of normal in size. The osseous structures appe ar intact. IMPRESSION: 1. Minimal vascular congestion w ith opacity at the left lung base. SL: [id number] -H at 0938 Re ported and signed by: Alfonso Mares M.D. CC: Sylvie Belle MD Technologist: RT Rashel(Laura)Laura Trnscrd Date/Time/By: 12/01/2018 (6332) : By: [email or web address] Orig Print D/T: S: 12/01/2018 (1717) PAGE 1 Signed Report ARTERIAL BLOOD [id number] 06:44:00* Test Item Value Reference Range Comments ARTERIAL BLOOD GAS PH (test code=PHA) 7.52 7.35-7.45 ARTERIAL BLOOD GAS PCO2 (test code=PCO2A) 35.6 mm Hg 35-45 ARTERIAL BLOOD GAS PO2 (test code=PO2A) 67.3 mmHg 80-100 BICARBONATE TOTAL HCO3 (test code=HCO3) 28.2 mmol/L 23.0-27.0 BASE EXCESS (test code=GALILEO) 5.4 mmol/L -3.0-5.0 ABG O2 SATURATION (test code=SATA) 94.7 % 90.0-98.0 ABG TYPE (test code=TYPEA) Arterial FIO2 (test code=FIO2A) 80.0 ABG L/M (test code=L/M) 80.00 L/MIN ABG VENT MODE (test code=MODEA) Assist Control ABG VENT RESP RATE (test code=RRA) 20.0 per min ABG TIDAL VOLUME (test code=TVA) 470.0 mL ABG PEEP (test code=PEEPA) 5.0 cmH2O MODIFIED ALLENS (test code=MODALL) Yes CHECK PERFORMED SODIUM (test code=NA/ABG) 140.0 mEq/L 135-148 POTASSIUM (test code=K/ABG) 3.0 mEq/L 3.5-4.5 CHLORIDE (test code=CL/ABG) 99 mEq/L 98-106 GLUCOSE (test code=GLU/ABG) 172 mg/dL 74-99 HEMATOCRIT (test code=HCT/ABG) 44 % 42-52 IONIZED CALCIUM (test code=CAIABG) 1.08 mmol/L 1.1-1.37 TOTAL HGB (test code=THB) 14.9 gram/dL 13.0-17.5 HGB O2 SAT (test code=HBOSAT) 92.6 % 94.00-98.00 CARBOXYHEMOGLOBIN (test code=HOHGBT) 1.8 %totalHg 0.5-1.5 METHEMOGLOBIN (test code=METHGB) 0.4 % 0.0-1.50 O2 CONTENT (test code=O2CT) 19.4 % vol 18.0-22.0 VENOUS BLOOD [id number] 06:42:00* Test Item Value Reference Range Comments IONIZED CALCIUM (test code=CAIABG) 1.07 mmol/L 1.1-1.37 VENOUS BLOOD GAS PH (test code=PHV) 7.46 7.30-7.40 VENOUS BLOOD GAS PCO2 (test code=PCO2V) 38.2 mm Hg 39.0-51.0 VENOUS BLOOD GAS PO2 (test code=PO2V) 61.9 mm Hg 30.0-50.0 VBG HCO3 (test code=HCO3V) 26.7 mmol/L 17.0-30.0 VBG BASE EXCESS (test code=KECIA) 3.0 mmol/L -5.0-5.0 VENOUS BLOOD GAS O2 SAT. (test code=O2SATV) 92 % 94-98 VENOUS BLOOD GAS FIO2 (test code=FIO2V) 80.0 VBG VENT MODE (test code=MODEV) Assist Control DENA. BLOOD GAS RESP. RATE (test code=RRV) 20.0 per min VBG TIDAL VOLUME (test code=TVV) 470.0 VENOUS BLOOD GAS PEEP (test code=PEEPV) 5.0 cmH2O PT. HGB (test code=PHGBVBG) 15.5 gram/dL 13.0-17.5 SODIUM (test code=NA/VBG) 141.7 mEq/L 135-148 POTASSIUM (test code=K/VBG) 4.1 mEq/L 3.5-4.5 CHLORIDE (test code=CL/VBG) 101 mEq/L 98-106 GLUCOSE (test code=GLU/VBG) 138 mg/dL 74-99 HEMATOCRIT (test code=HCT/VBG) 46 % 42-52 HGB O2 SAT (test code=HBOSAT) 90.4 % 94.00-98.00 CARBOXYHEMOGLOBIN (test code=HOHGBT) 1.7 %totalHg 0.5-1.5 METHEMOGLOBIN (test code=METHGB) 0.4 % 0.0-1.50 - XR CHEST 1 [id number] 06:02:00 FAX: Trace Benavides MD [place]: St: REG Name: ARCELIA NATARAJAN [facility] : [birth year] Age/S: 33/M [address] [facility] Unit #: [id number] [place]: [place] [address] Phys: Trace Benavides MD Acct: [id number] Dis Date: Status: REG ER PHONE #: [phone] Exam Date: 12/01/2018557 FAX #: [phone] Reason: Confirm ETT EXAMS: CPT CODE: [id number] XR CHEST 1 V 73356 EXAM: - XR CHEST 1 V HISTORY: Intubated. FINDINGS: Single AP view of the chest is provided. Endotracheal tube is 1.9 cm above the brianda. Nasogastric tube is in proximal stomach. Cardiomegaly. Central pulmonary vascular prominence. Hypoinflation of the lungs. No evidence of cons olidation, pleural effusion or pneumothorax. IMPRESSION: ET tube can be withdrawn 2 cm. NG tube can be advanced. Adia ctronically Signed by Celestino Nance MD on 12/01/2018 at 0602 Reported and signed by: Celestino Nance MD CC: Trace Gonzalez i, MD Technologist: RT ADRIAN(R) Trnscrd Date/Time/By: 12/01/2018 (601) : By: [email or web address] Orig Print D/T: S: 12/01/2018 (0605) PAGE 1 Signed Report - XR CHEST 1 [id number] 06:00:00 FAX: Trace Benavides MD [place]: B St: REG Name: ARCEILA NATARAJAN [facility] : [birth year] Age/S: 33/M [address] [facility] Unit #: [id number] Loc: [place] [address] Phys: Trace Benavides MD Acct: [id number] Dis Date: Status: REG ER PHONE #: [phone] Exam Date: 12/01/2018553 FAX #: [phone] Reason: repositioning of ETT EXAMS: CPT CODE: [id number] XR CHEST 1 V 88858 EXAM: - XR CHEST 1 V HISTORY: Intubated. COMPARISON: July 31, 2018. FIN DINGS: Single AP view of the chest is provided. Endotrache al tube is 2.9 cm above the brianda. Nasogastric tube is projecting over th e proximal stomach. The side-port is in distal esophagus. Cardiomega ly. Hypoinflation of the lungs. There is no focal consolidation, ple ural effusion, pneumothorax, or acute osseous abnormality. IMPRESSION: Nasogastric tube is projecting over the proximal st omach. This can be advanced for optimal positioning. E ndotracheal tube is in satisfactory position. at 0600 Reported and signed by: Celestino Nance MD CC: Trace Benavides MD Technologist: YURY MANUEL RT(R) Trnscrd Date/Time/By: 12/01/2018 (0600) : By: [email or web address] Orig Print D/T: S: 12/01/2018 (0603) PAGE 1 Signed Report BASIC METABOLIC PANEL 2018-12-01 05:33:00* Test Item Value Reference Range Comments SODIUM (test code=NA) 137 mmol/L 136-145 POTASSIUM (test code=K) 3.7 mmol/L 3.5-5.1 CHLORIDE (test code=CL) 104.0 mmol/L 98-107 CARBON DIOXIDE (test code=CO2) 24.0 mmol/L 21-32 ANION GAP (test code=GAP) 12.7 10-20 GLUCOSE (test code=GLU) 104 mg/dL 74-106 BLOOD UREA NITROGEN (test code=BUN) 14 mg/dL 7-18 GLOMERULAR FILTRATION RATE (test code=GFR) > 60 mL/min >=60 Estimated GFR by using Modified MDRD formula.Chronic kidney disease is defined as either kidney damageor GFR <60 mL/min/1.73 m2 for >3 months. CREATININE (test code=CREAT) 0.90 mg/dL 0.7-1.3 BUN/CREATININE RATIO (test code=BUN/CREA) 16.4 10-20 CALCIUM (test code=CA) 8.8 mg/dL 8.5-10.1 HEPATIC FUNCTION [id number] 05:33:00* Test Item Value Reference Range Comments TOTAL PROTEIN (test code=PROT) 7.8 gram/dL 6.4-8.2 ALBUMIN (test code=ALB) 4.3 g/dL 3.4-5.0 GLOBULIN (test code=GLOB) 3.5 gram/dL 2.7-4.2 ALBUMIN/GLOBULIN RATIO (test code=A/G) 1.2 0.75-1.50 BILIRUBIN TOTAL (test code=BILT) 0.40 mg/dL 0.0-1.0 BILIRUBIN DIRECT (test code=BILD) 0.12 mg/dL 0.0-0.20 SGOT/AST (test code=AST) 37 IUnit/L 15-37 SGPT/ALT (test code=ALT) 32 IUnit/L 12-78 ALKALINE PHOSPHATASE TOTAL (test code=ALKP) 105 IUnit/L 45-117 Note change in reference range due to change in reagent. [id number] 05:33:00* Test Item Value Reference Range Comments ACETAMINOPHEN (test code=ACET) < 10 mcg/mL 10-30 A RANGE OF 10-30 mcg/mL IS A THERAPEUTIC RANGE. TOXIC CONCENTRATIONS: >150 mcg/mL AT 4 HOURS AFTER INGESTION >=50 mcg/mL AT 12 HOURS AFTER INGESTION [id number] 05:33:00* Test Item Value Reference Range Comments SALICYLATE (test code=HIREN) 2.3 mg/dL 2.8-20.0 [id number] 05:33:00* Test Item Value Reference Range Comments ALCOHOL (test code=ALC) 13 mg/dL 0.0-3.0 INTERPRETIVE DATA NOTE: POSITIVE SCREENING RESULTS SHOULD BE CONSIDERED PRESUMPTIVE.WHEN COLLECTED FOR MEDICAL PURPOSES ONLY. SPECIMEN WILL NOTBE COLLECTED BY CHAIN OF CUSTODY.IF A CONFIRMATION OF POSITIVE RESULTS IS DESIRED, ACONFIRMATION TEST MUST BE REQUESTED BY THE PHYSICIAN AT ANADDITIONAL CHARGE TO THE PATIENT. BASIC METABOLIC [id number] 05:22:00* Test Item Value Reference Range Comments SODIUM (test code=NA) 137 mmol/L 136-145 POTASSIUM (test code=K) 3.7 mmol/L 3.5-5.1 CHLORIDE (test code=CL) 104.0 mmol/L 98-107 CARBON DIOXIDE (test code=CO2) mmol/L 21-32 ANION GAP (test code=GAP) 10-20 GLUCOSE (test code=GLU) mg/dL 74-106 BLOOD UREA NITROGEN (test code=BUN) mg/dL 7-18 GLOMERULAR FILTRATION RATE (test code=GFR) mL/min >=60 CREATININE (test code=CREAT) mg/dL 0.7-1.3 BUN/CREATININE RATIO (test code=BUN/CREA) 10-20 CALCIUM (test code=CA) mg/dL 8.5-10.1 HEPATIC FUNCTION [id number] 05:22:00* Test Item Value Reference Range Comments TOTAL PROTEIN (test code=PROT) gram/dL 6.4-8.2 ALBUMIN (test code=ALB) g/dL 3.4-5.0 GLOBULIN (test code=GLOB) gram/dL 2.7-4.2 ALBUMIN/GLOBULIN RATIO (test code=A/G) 0.75-1.50 BILIRUBIN TOTAL (test code=BILT) mg/dL 0.0-1.0 BILIRUBIN DIRECT (test code=BILD) mg/dL 0.0-0.20 SGOT/AST (test code=AST) IUnit/L 15-37 SGPT/ALT (test code=ALT) IUnit/L 12-78 ALKALINE PHOSPHATASE TOTAL (test code=ALKP) IUnit/L 45-117 [id number] 05:22:00* Test Item Value Reference Range Comments ACETAMINOPHEN (test code=ACET) mcg/mL 10-30 [id number] 05:22:00* Test Item Value Reference Range Comments SALICYLATE (test code=HIREN) mg/dL 2.8-20.0 [id number] 05:22:00* Test Item Value Reference Range Comments ALCOHOL (test code=ALC) mg/dL 0-3 CBC W/O [id number] 05:18:00* Test Item Value Reference Range Comments WHITE BLOOD CELL (test code=WBC) 16.6 K/mm3 4.5-12.5 RED BLOOD CELL (test code=RBC) 5.02 mill/mm3 4.0-5.8 HEMOGLOBIN (test code=HGB) 15.4 gram/dL 13.0-17.5 HEMATOCRIT (test code=HCT) 45.8 % 42.0-52.0 MEAN CELL VOLUME (test code=MCV) 91.2 fL 80-98 MEAN CELL HGB (test code=MCH) 30.7 picogram 27.0-33.0 MEAN CELL HGB CONCETRATION (test code=MCHC) 33.6 gram/dL 33.0-36.0 RED CELL DISTRIBUTION WIDTH (test code=RDW) 13.2 % 11.6-16.2 PLATELET COUNT (test code=PLT) 241 K/mm3 150-450 MEAN PLATELET VOLUME (test code=MPV) 10.8 fL 6.7-11.0 CBC W/O [id number] 05:16:00* Test Item Value Reference Range Comments WHITE BLOOD CELL (test code=WBC) K/mm3 4.5-12.5 RED BLOOD CELL (test code=RBC) mill/mm3 4.0-5.8 HEMOGLOBIN (test code=HGB) 15.4 gram/dL 13.0-17.5 HEMATOCRIT (test code=HCT) 45.8 % 42.0-52.0 MEAN CELL VOLUME (test code=MCV) fL 80-98 MEAN CELL HGB (test code=MCH) picogram 27.0-33.0 MEAN CELL HGB CONCETRATION (test code=MCHC) gram/dL 33.0-36.0 RED CELL DISTRIBUTION WIDTH (test code=RDW) % 11.6-16.2 PLATELET COUNT (test code=PLT) K/mm3 150-450 MEAN PLATELET VOLUME (test code=MPV) fL 6.7-11.0 URINALYSIS [id number] 01:39:00* Test Item Value Reference Range Comments UA COLOR (test code=COLU) Light-Yellow YELLOW UA APPEARANCE (test code=APPU) CLEAR CLEAR UA GLUCOSE DIPSTICK (test code=DGLUU) NEGATIVE mg/dL NEGATIVE UA BILIRUBIN DIPSTICK (test code=BILU) NEGATIVE mg/dL NEGATIVE UA KETONE DIPSTICK (test code=KETU) 40 (2+) mg/dL NEGATIVE UA SPECIFIC GRAVITY (test code=SGU) 1.011 1.001-1.035 UA BLOOD DIPSTICK (test code=KATHI) Negative mg/dL NEGATIVE UA PH DIPSTICK (test code=VIVI) 6.0 5.0-8.0 UA PROTEIN DIPSTICK (test code=PROU) NEGATIVE mg/dL NEGATIVE UA UROBILINIOGEN DIPSTICK (test code=URO) Normal mg/dL NEGATIVE UA NITRITE DIPSTICK (test code=PRASHANT) NEGATIVE NEGATIVE UA LEUKOCYTE ESTERASE W REFLEX (test code=LEUUR) NEGATIVE Gerard/uL NEGATIVE UA WBC (test code=WBCU) 0-5 per HPF 0-5 UA RBC (test code=RBCU) 0-2 #/HPF 0-5 UA EPITHELIAL CELLS (test code=EPIU) None seen per HPF Few UA BACTERIA (test code=BACU) NONE SEEN per HPF NONE UA HYALINE CAST (test code=HYALU) 3-5 #/LPF 0-5 UA MUCUS (test code=MUCU) FEW #/LPF FEW Urine Source? Clean CatchDRUGS OF ABUSE SCREEN [id number] 01:39:00* Test Item Value Reference Range Comments URN COCAINE (test code=COCAURN) NEGATIVE <300 ng/mL URN CANNABINOIDS (test code=CANNABURN) POSITIVE <50 ng/mL This test provides only a preliminary test result. A morespecific alternate chemical method must be used in order toobtain a confirmed analytical result. Gas chromatography/mass spectrometry (GC/MS) is thepreferred confirmatory method. Other chemical confirmationmethods are available. Clinical consideration and professional judgment should be applied to any drug of abusetest result, particularly when preliminary positive resultsare used.Unconfirmed screening results must not be used fornon-medical purposes (e.g., employment testing, legaltesting). URN AMPHETAMINE (test code=AMPHETURN) POSITIVE <1000 ng/mL This test provides only a preliminary test result. A morespecific alternate chemical method must be used in order toobtain a confirmed analytical result. Gas chromatography/mass spectrometry (GC/MS) is thepreferred confirmatory method. Other chemical confirmationmethods are available. Clinical consideration and professional judgment should be applied to any drug of abusetest result, particularly when preliminary positive resultsare used.Unconfirmed screening results must not be used fornon-medical purposes (e.g., employment testing, legaltesting). URN BARBITURATE (test code=BARBITURN) NEGATIVE <200 ng/mL URN BENZODIAZEPINE (test code=BENZOURN) POSITIVE <200 ng/mL This test provides only a preliminary test result. A morespecific alternate chemical method must be used in order toobtain a confirmed analytical result. Gas chromatography/mass spectrometry (GC/MS) is thepreferred confirmatory method. Other chemical confirmationmethods are available. Clinical consideration and professional judgment should be applied to any drug of abusetest result, particularly when preliminary positive resultsare used.Unconfirmed screening results must not be used fornon-medical purposes (e.g., employment testing, legaltesting). URN OPIATES (test code=OPIATURN) NEGATIVE <300 ng/mL URN PHENCYCLIDINE (PCP) (test code=PHENCURN) NEGATIVE <25 ng/mL URN METHADONE (test code=METHAURN) NEGATIVE <300 ng/mL Urine Source? Clean CatchURINALYSIS [id number] 01:21:00* Test Item Value Reference Range Comments UA COLOR (test code=COLU) Light-Yellow YELLOW UA APPEARANCE (test code=APPU) CLEAR CLEAR UA GLUCOSE DIPSTICK (test code=DGLUU) NEGATIVE mg/dL NEGATIVE UA BILIRUBIN DIPSTICK (test code=BILU) NEGATIVE mg/dL NEGATIVE UA KETONE DIPSTICK (test code=KETU) 40 (2+) mg/dL NEGATIVE UA SPECIFIC GRAVITY (test code=SGU) 1.011 1.001-1.035 UA BLOOD DIPSTICK (test code=KATHI) Negative mg/dL NEGATIVE UA PH DIPSTICK (test code=VIVI) 6.0 5.0-8.0 UA PROTEIN DIPSTICK (test code=PROU) NEGATIVE mg/dL NEGATIVE UA UROBILINIOGEN DIPSTICK (test code=URO) Normal mg/dL NEGATIVE UA NITRITE DIPSTICK (test code=PRASHANT) NEGATIVE NEGATIVE UA LEUKOCYTE ESTERASE W REFLEX (test code=LEUUR) NEGATIVE Gerard/uL NEGATIVE UA WBC (test code=WBCU) 0-5 per HPF 0-5 UA RBC (test code=RBCU) 0-2 #/HPF 0-5 UA EPITHELIAL CELLS (test code=EPIU) per HPF Few UA BACTERIA (test code=BACU) per HPF NONE UA HYALINE CAST (test code=HYALU) 3-5 #/LPF 0-5 UA MUCUS (test code=MUCU) FEW #/LPF FEW Urine Source? Clean CatchDRUGS OF ABUSE SCREEN [id number] 01:21:00* Test Item Value Reference Range Comments URN COCAINE (test code=COCAURN) NEGATIVE <300 ng/mL URN CANNABINOIDS (test code=CANNABURN) POSITIVE <50 ng/mL This test provides only a preliminary test result. A morespecific alternate chemical method must be used in order toobtain a confirmed analytical result. Gas chromatography/mass spectrometry (GC/MS) is thepreferred confirmatory method. Other chemical confirmationmethods are available. Clinical consideration and professional judgment should be applied to any drug of abusetest result, particularly when preliminary positive resultsare used.Unconfirmed screening results must not be used fornon-medical purposes (e.g., employment testing, legaltesting). URN AMPHETAMINE (test code=AMPHETURN) POSITIVE <1000 ng/mL This test provides only a preliminary test result. A morespecific alternate chemical method must be used in order toobtain a confirmed analytical result. Gas chromatography/mass spectrometry (GC/MS) is thepreferred confirmatory method. Other chemical confirmationmethods are available. Clinical consideration and professional judgment should be applied to any drug of abusetest result, particularly when preliminary positive resultsare used.Unconfirmed screening results must not be used fornon-medical purposes (e.g., employment testing, legaltesting). URN BARBITURATE (test code=BARBITURN) NEGATIVE <200 ng/mL URN BENZODIAZEPINE (test code=BENZOURN) POSITIVE <200 ng/mL This test provides only a preliminary test result. A morespecific alternate chemical method must be used in order toobtain a confirmed analytical result. Gas chromatography/mass spectrometry (GC/MS) is thepreferred confirmatory method. Other chemical confirmationmethods are available. Clinical consideration and professional judgment should be applied to any drug of abusetest result, particularly when preliminary positive resultsare used.Unconfirmed screening results must not be used fornon-medical purposes (e.g., employment testing, legaltesting). URN OPIATES (test code=OPIATURN) NEGATIVE <300 ng/mL URN PHENCYCLIDINE (PCP) (test code=PHENCURN) NEGATIVE <25 ng/mL URN METHADONE (test code=METHAURN) NEGATIVE <300 ng/mL Urine Source? Clean CatchURINALYSIS [id number] 01:09:00* Test Item Value Reference Range Comments UA COLOR (test code=COLU) Light-Yellow YELLOW UA APPEARANCE (test code=APPU) CLEAR CLEAR UA GLUCOSE DIPSTICK (test code=DGLUU) NEGATIVE mg/dL NEGATIVE UA BILIRUBIN DIPSTICK (test code=BILU) NEGATIVE mg/dL NEGATIVE UA KETONE DIPSTICK (test code=KETU) 40 (2+) mg/dL NEGATIVE UA SPECIFIC GRAVITY (test code=SGU) 1.011 1.001-1.035 UA BLOOD DIPSTICK (test code=KATHI) Negative mg/dL NEGATIVE UA PH DIPSTICK (test code=VIVI) 6.0 5.0-8.0 UA PROTEIN DIPSTICK (test code=PROU) NEGATIVE mg/dL NEGATIVE UA UROBILINIOGEN DIPSTICK (test code=URO) Normal mg/dL NEGATIVE UA NITRITE DIPSTICK (test code=PRASHANT) NEGATIVE NEGATIVE UA LEUKOCYTE ESTERASE W REFLEX (test code=LEUUR) NEGATIVE Gerard/uL NEGATIVE UA WBC (test code=WBCU) per HPF 0-5 UA RBC (test code=RBCU) per HPF 0-5 UA EPITHELIAL CELLS (test code=EPIU) per HPF Few UA BACTERIA (test code=BACU) per HPF NONE Urine Source? Clean CatchDRUGS OF ABUSE SCREEN [id number] 01:09:00* Test Item Value Reference Range Comments URN COCAINE (test code=COCAURN) NEGATIVE <300 ng/mL URN CANNABINOIDS (test code=CANNABURN) POSITIVE <50 ng/mL This test provides only a preliminary test result. A morespecific alternate chemical method must be used in order toobtain a confirmed analytical result. Gas chromatography/mass spectrometry (GC/MS) is thepreferred confirmatory method. Other chemical confirmationmethods are available. Clinical consideration and professional judgment should be applied to any drug of abusetest result, particularly when preliminary positive resultsare used.Unconfirmed screening results must not be used fornon-medical purposes (e.g., employment testing, legaltesting). URN AMPHETAMINE (test code=AMPHETURN) POSITIVE <1000 ng/mL This test provides only a preliminary test result. A morespecific alternate chemical method must be used in order toobtain a confirmed analytical result. Gas chromatography/mass spectrometry (GC/MS) is thepreferred confirmatory method. Other chemical confirmationmethods are available. Clinical consideration and professional judgment should be applied to any drug of abusetest result, particularly when preliminary positive resultsare used.Unconfirmed screening results must not be used fornon-medical purposes (e.g., employment testing, legaltesting). URN BARBITURATE (test code=BARBITURN) NEGATIVE <200 ng/mL URN BENZODIAZEPINE (test code=BENZOURN) POSITIVE <200 ng/mL This test provides only a preliminary test result. A morespecific alternate chemical method must be used in order toobtain a confirmed analytical result. Gas chromatography/mass spectrometry (GC/MS) is thepreferred confirmatory method. Other chemical confirmationmethods are available. Clinical consideration and professional judgment should be applied to any drug of abusetest result, particularly when preliminary positive resultsare used.Unconfirmed screening results must not be used fornon-medical purposes (e.g., employment testing, legaltesting). URN OPIATES (test code=OPIATURN) NEGATIVE <300 ng/mL URN PHENCYCLIDINE (PCP) (test code=PHENCURN) NEGATIVE <25 ng/mL URN METHADONE (test code=METHAURN) NEGATIVE <300 ng/mL Urine Source? Clean CatchURINALYSIS [id number] 00:49:00* Test Item Value Reference Range Comments UA COLOR (test code=COLU) Light-Yellow YELLOW UA APPEARANCE (test code=APPU) CLEAR CLEAR UA GLUCOSE DIPSTICK (test code=DGLUU) NEGATIVE mg/dL NEGATIVE UA BILIRUBIN DIPSTICK (test code=BILU) NEGATIVE mg/dL NEGATIVE UA KETONE DIPSTICK (test code=KETU) 40 (2+) mg/dL NEGATIVE UA SPECIFIC GRAVITY (test code=SGU) 1.011 1.001-1.035 UA BLOOD DIPSTICK (test code=KATHI) Negative mg/dL NEGATIVE UA PH DIPSTICK (test code=VIVI) 6.0 5.0-8.0 UA PROTEIN DIPSTICK (test code=PROU) NEGATIVE mg/dL NEGATIVE UA UROBILINIOGEN DIPSTICK (test code=URO) Normal mg/dL NEGATIVE UA NITRITE DIPSTICK (test code=PRASHANT) NEGATIVE NEGATIVE UA LEUKOCYTE ESTERASE W REFLEX (test code=LEUUR) NEGATIVE Gerard/uL NEGATIVE UA WBC (test code=WBCU) per HPF 0-5 UA RBC (test code=RBCU) per HPF 0-5 UA EPITHELIAL CELLS (test code=EPIU) per HPF Few UA BACTERIA (test code=BACU) per HPF NONE Urine Source? Clean CatchDRUGS OF ABUSE SCREEN [id number] 00:49:00* Test Item Value Reference Range Comments URN COCAINE (test code=COCAURN) <300 ng/mL URN CANNABINOIDS (test code=CANNABURN) <50 ng/mL URN AMPHETAMINE (test code=AMPHETURN) <1000 ng/mL URN BARBITURATE (test code=BARBITURN) <200 ng/mL URN BENZODIAZEPINE (test code=BENZOURN) <200 ng/mL URN OPIATES (test code=OPIATURN) <300 ng/mL URN PHENCYCLIDINE (PCP) (test code=PHENCURN) <25 ng/mL URN METHADONE (test code=METHAURN) <300 ng/mL Urine Source? Clean CatchBASIC METABOLIC [id number] 19:01:00* Test Item Value Reference Range Comments SODIUM (test code=NA) 138 mmol/L 136-145 POTASSIUM (test code=K) 3.7 mmol/L 3.5-5.1 CHLORIDE (test code=CL) 104.0 mmol/L 98-107 CARBON DIOXIDE (test code=CO2) 27.0 mmol/L 21-32 ANION GAP (test code=GAP) 10.7 10-20 GLUCOSE (test code=GLU) 100 mg/dL 74-106 BLOOD UREA NITROGEN (test code=BUN) 17 mg/dL 7-18 GLOMERULAR FILTRATION RATE (test code=GFR) 58 mL/min >=60 Estimated GFR by using Modified MDRD formula.Chronic kidney disease is defined as either kidney damageor GFR <60 mL/min/1.73 m2 for >3 months. CREATININE (test code=CREAT) 1.40 mg/dL 0.7-1.3 BUN/CREATININE RATIO (test code=BUN/CREA) 12.1 10-20 CALCIUM (test code=CA) 10.0 mg/dL 8.5-10.1 HEPATIC FUNCTION [id number] 19:01:00* Test Item Value Reference Range Comments TOTAL PROTEIN (test code=PROT) 8.9 gram/dL 6.4-8.2 ALBUMIN (test code=ALB) 4.8 g/dL 3.4-5.0 GLOBULIN (test code=GLOB) 4.1 gram/dL 2.7-4.2 ALBUMIN/GLOBULIN RATIO (test code=A/G) 1.2 0.75-1.50 BILIRUBIN TOTAL (test code=BILT) 0.60 mg/dL 0.0-1.0 BILIRUBIN DIRECT (test code=BILD) 0.17 mg/dL 0.0-0.20 SGOT/AST (test code=AST) 40 IUnit/L 15-37 SGPT/ALT (test code=ALT) 34 IUnit/L 12-78 ALKALINE PHOSPHATASE TOTAL (test code=ALKP) 99 IUnit/L 45-117 Note change in reference range due to change in reagent. [id number] 19:01:00* Test Item Value Reference Range Comments ALCOHOL (test code=ALC) < 3 mg/dL 0.0-3.0 INTERPRETIVE DATA NOTE: POSITIVE SCREENING RESULTS SHOULD BE CONSIDERED PRESUMPTIVE.WHEN COLLECTED FOR MEDICAL PURPOSES ONLY. SPECIMEN WILL NOTBE COLLECTED BY CHAIN OF CUSTODY.IF A CONFIRMATION OF POSITIVE RESULTS IS DESIRED, ACONFIRMATION TEST MUST BE REQUESTED BY THE PHYSICIAN AT ANADDITIONAL CHARGE TO THE PATIENT. BASIC METABOLIC [id number] 18:51:00* Test Item Value Reference Range Comments SODIUM (test code=NA) 138 mmol/L 136-145 POTASSIUM (test code=K) 3.7 mmol/L 3.5-5.1 CHLORIDE (test code=CL) 104.0 mmol/L 98-107 CARBON DIOXIDE (test code=CO2) mmol/L 21-32 ANION GAP (test code=GAP) 10-20 GLUCOSE (test code=GLU) mg/dL 74-106 BLOOD UREA NITROGEN (test code=BUN) mg/dL 7-18 GLOMERULAR FILTRATION RATE (test code=GFR) mL/min >=60 CREATININE (test code=CREAT) mg/dL 0.7-1.3 BUN/CREATININE RATIO (test code=BUN/CREA) 10-20 CALCIUM (test code=CA) mg/dL 8.5-10.1 HEPATIC FUNCTION [id number] 18:51:00* Test Item Value Reference Range Comments TOTAL PROTEIN (test code=PROT) gram/dL 6.4-8.2 ALBUMIN (test code=ALB) g/dL 3.4-5.0 GLOBULIN (test code=GLOB) gram/dL 2.7-4.2 ALBUMIN/GLOBULIN RATIO (test code=A/G) 0.75-1.50 BILIRUBIN TOTAL (test code=BILT) mg/dL 0.0-1.0 BILIRUBIN DIRECT (test code=BILD) mg/dL 0.0-0.20 SGOT/AST (test code=AST) IUnit/L 15-37 SGPT/ALT (test code=ALT) IUnit/L 12-78 ALKALINE PHOSPHATASE TOTAL (test code=ALKP) IUnit/L 45-117 [id number] 18:51:00* Test Item Value Reference Range Comments ALCOHOL (test code=ALC) mg/dL 0-3 CBC W/O [id number] 18:50:00* Test Item Value Reference Range Comments WHITE BLOOD CELL (test code=WBC) K/mm3 4.5-12.5 RED BLOOD CELL (test code=RBC) mill/mm3 4.0-5.8 HEMOGLOBIN (test code=HGB) 16.6 gram/dL 13.0-17.5 HEMATOCRIT (test code=HCT) 48.9 % 42.0-52.0 MEAN CELL VOLUME (test code=MCV) fL 80-98 MEAN CELL HGB (test code=MCH) picogram 27.0-33.0 MEAN CELL HGB CONCETRATION (test code=MCHC) gram/dL 33.0-36.0 RED CELL DISTRIBUTION WIDTH (test code=RDW) % 11.6-16.2 PLATELET COUNT (test code=PLT) K/mm3 150-450 MEAN PLATELET VOLUME (test code=MPV) fL 6.7-11.0 CBC W/O [id number] 18:50:00* Test Item Value Reference Range Comments WHITE BLOOD CELL (test code=WBC) 12.8 K/mm3 4.5-12.5 RED BLOOD CELL (test code=RBC) 5.46 mill/mm3 4.0-5.8 HEMOGLOBIN (test code=HGB) 16.6 gram/dL 13.0-17.5 HEMATOCRIT (test code=HCT) 48.9 % 42.0-52.0 MEAN CELL VOLUME (test code=MCV) 89.6 fL 80-98 MEAN CELL HGB (test code=MCH) 30.4 picogram 27.0-33.0 MEAN CELL HGB CONCETRATION (test code=MCHC) 33.9 gram/dL 33.0-36.0 RED CELL DISTRIBUTION WIDTH (test code=RDW) 12.4 % 11.6-16.2 PLATELET COUNT (test code=PLT) 277 K/mm3 150-450 MEAN PLATELET VOLUME (test code=MPV) 11.0 fL 6.7-11.0 URINALYSIS [id number] 12:30:00* Test Item Value Reference Range Comments UA COLOR (test code=COLU) YELLOW YELLOW UA APPEARANCE (test code=APPU) CLEAR CLEAR UA GLUCOSE DIPSTICK (test code=DGLUU) NEGATIVE mg/dL NEGATIVE UA BILIRUBIN DIPSTICK (test code=BILU) NEGATIVE mg/dL NEGATIVE UA KETONE DIPSTICK (test code=KETU) 80 mg/dL NEGATIVE UA SPECIFIC GRAVITY (test code=SGU) 1.017 1.001-1.035 UA BLOOD DIPSTICK (test code=KATHI) Negative NEGATIVE UA PH DIPSTICK (test code=VIVI) 6.0 5.0-8.0 UA PROTEIN DIPSTICK (test code=PROU) Negative mg/dL NEGATIVE UA UROBILINIOGEN DIPSTICK (test code=URO) NEGATIVE mg/dL NEGATIVE UA NITRITE DIPSTICK (test code=PRASHANT) NEGATIVE NEGATIVE UA LEUKOCYTE ESTERASE W REFLEX (test code=LEUUR) NEGATIVE NEGATIVE UA WBC (test code=WBCU) 0-5 #/HPF 0-5 UA RBC (test code=RBCU) 0-2 #/HPF 0-5 UA EPITHELIAL CELLS (test code=EPIU) FEW per HPF FEW UA BACTERIA (test code=BACU) FEW #/HPF NONE UA MUCUS (test code=MUCU) MANY #/LPF FEW Urine Source? Clean CatchDRUGS OF ABUSE SCREEN [id number] 12:30:00* Test Item Value Reference Range Comments URN COCAINE (test code=COCAURN) NEGATIVE <300 ng/mL URN CANNABINOIDS (test code=CANNABURN) POSITIVE <50 ng/mL This test provides only a preliminary test result. A morespecific alternate chemical method must be used in order toobtain a confirmed analytical result. Gas chromatography/mass spectrometry (GC/MS) is thepreferred confirmatory method. Other chemical confirmationmethods are available. Clinical consideration and professional judgment should be applied to any drug of abusetest result, particularly when preliminary positive resultsare used.Unconfirmed screening results must not be used fornon-medical purposes (e.g., employment testing, legaltesting). URN AMPHETAMINE (test code=AMPHETURN) POSITIVE <1000 ng/mL This test provides only a preliminary test result. A morespecific alternate chemical method must be used in order toobtain a confirmed analytical result. Gas chromatography/mass spectrometry (GC/MS) is thepreferred confirmatory method. Other chemical confirmationmethods are available. Clinical consideration and professional judgment should be applied to any drug of abusetest result, particularly when preliminary positive resultsare used.Unconfirmed screening results must not be used fornon-medical purposes (e.g., employment testing, legaltesting). URN BARBITURATE (test code=BARBITURN) NEGATIVE <200 ng/mL URN BENZODIAZEPINE (test code=BENZOURN) POSITIVE <200 ng/mL This test provides only a preliminary test result. A morespecific alternate chemical method must be used in order toobtain a confirmed analytical result. Gas chromatography/mass spectrometry (GC/MS) is thepreferred confirmatory method. Other chemical confirmationmethods are available. Clinical consideration and professional judgment should be applied to any drug of abusetest result, particularly when preliminary positive resultsare used.Unconfirmed screening results must not be used fornon-medical purposes (e.g., employment testing, legaltesting). URN OPIATES (test code=OPIATURN) NEGATIVE <300 ng/mL URN PHENCYCLIDINE (PCP) (test code=PHENCURN) NEGATIVE <25 ng/mL URN METHADONE (test code=METHAURN) NEGATIVE <300 ng/mL Urine Source? Clean CatchURINALYSIS [id number] 11:42:00* Test Item Value Reference Range Comments UA COLOR (test code=COLU) YELLOW YELLOW UA APPEARANCE (test code=APPU) CLEAR CLEAR UA GLUCOSE DIPSTICK (test code=DGLUU) NEGATIVE mg/dL NEGATIVE UA BILIRUBIN DIPSTICK (test code=BILU) NEGATIVE mg/dL NEGATIVE UA KETONE DIPSTICK (test code=KETU) 80 mg/dL NEGATIVE UA SPECIFIC GRAVITY (test code=SGU) 1.017 1.001-1.035 UA BLOOD DIPSTICK (test code=KATHI) Negative NEGATIVE UA PH DIPSTICK (test code=VIVI) 6.0 5.0-8.0 UA PROTEIN DIPSTICK (test code=PROU) Negative mg/dL NEGATIVE UA UROBILINIOGEN DIPSTICK (test code=URO) NEGATIVE mg/dL NEGATIVE UA NITRITE DIPSTICK (test code=PRASHANT) NEGATIVE NEGATIVE UA LEUKOCYTE ESTERASE W REFLEX (test code=LEUUR) NEGATIVE NEGATIVE UA WBC (test code=WBCU) 0-5 #/HPF 0-5 UA RBC (test code=RBCU) 0-2 #/HPF 0-5 UA EPITHELIAL CELLS (test code=EPIU) FEW per HPF FEW UA BACTERIA (test code=BACU) FEW #/HPF NONE UA MUCUS (test code=MUCU) MANY #/LPF FEW Urine Source? Clean CatchDRUGS OF ABUSE SCREEN [id number] 11:42:00* Test Item Value Reference Range Comments URN COCAINE (test code=COCAURN) <300 ng/mL URN CANNABINOIDS (test code=CANNABURN) <50 ng/mL URN AMPHETAMINE (test code=AMPHETURN) <1000 ng/mL URN BARBITURATE (test code=BARBITURN) <200 ng/mL URN BENZODIAZEPINE (test code=BENZOURN) <200 ng/mL URN OPIATES (test code=OPIATURN) <300 ng/mL URN PHENCYCLIDINE (PCP) (test code=PHENCURN) <25 ng/mL URN METHADONE (test code=METHAURN) <300 ng/mL Urine Source? Clean CatchBASIC METABOLIC [id number] 05:04:00* Test Item Value Reference Range Comments SODIUM (test code=NA) 139 mmol/L 136-145 POTASSIUM (test code=K) 3.6 mmol/L 3.5-5.1 CHLORIDE (test code=CL) 102.0 mmol/L 98-107 CARBON DIOXIDE (test code=CO2) 25.0 mmol/L 21-32 ANION GAP (test code=GAP) 15.6 10-20 GLUCOSE (test code=GLU) 74 mg/dL 74-106 BLOOD UREA NITROGEN (test code=BUN) 12 mg/dL 7-18 GLOMERULAR FILTRATION RATE (test code=GFR) > 60 mL/min >=60 Estimated GFR by using Modified MDRD formula.Chronic kidney disease is defined as either kidney damageor GFR <60 mL/min/1.73 m2 for >3 months. CREATININE (test code=CREAT) 0.80 mg/dL 0.7-1.3 BUN/CREATININE RATIO (test code=BUN/CREA) 14.4 10-20 CALCIUM (test code=CA) 8.4 mg/dL 8.5-10.1 HEPATIC FUNCTION [id number] 05:04:00* Test Item Value Reference Range Comments TOTAL PROTEIN (test code=PROT) 7.6 gram/dL 6.4-8.2 ALBUMIN (test code=ALB) 4.0 g/dL 3.4-5.0 GLOBULIN (test code=GLOB) 3.6 gram/dL 2.7-4.2 ALBUMIN/GLOBULIN RATIO (test code=A/G) 1.1 0.75-1.50 BILIRUBIN TOTAL (test code=BILT) 0.60 mg/dL 0.0-1.0 BILIRUBIN DIRECT (test code=BILD) 0.20 mg/dL 0.0-0.20 SGOT/AST (test code=AST) 37 IUnit/L 15-37 SGPT/ALT (test code=ALT) 36 IUnit/L 12-78 ALKALINE PHOSPHATASE TOTAL (test code=ALKP) 89 IUnit/L 45-117 Note change in reference range due to change in reagent. [id number] 05:04:00* Test Item Value Reference Range Comments TROPONIN-I (test code=TROPI) <0.015 ng/mL 0-0.045 [id number] 05:04:00* Test Item Value Reference Range Comments ACETAMINOPHEN (test code=ACET) < 10 mcg/mL 10-30 A RANGE OF 10-30 mcg/mL IS A THERAPEUTIC RANGE. TOXIC CONCENTRATIONS: >150 mcg/mL AT 4 HOURS AFTER INGESTION >=50 mcg/mL AT 12 HOURS AFTER INGESTION [id number] 05:04:00* Test Item Value Reference Range Comments SALICYLATE (test code=HIREN) < 1.7 mg/dL 2.8-20.0 [id number] 05:04:00* Test Item Value Reference Range Comments ALCOHOL (test code=ALC) 11 mg/dL 0.0-3.0 INTERPRETIVE DATA NOTE: POSITIVE SCREENING RESULTS SHOULD BE CONSIDERED PRESUMPTIVE.WHEN COLLECTED FOR MEDICAL PURPOSES ONLY. SPECIMEN WILL NOTBE COLLECTED BY CHAIN OF CUSTODY.IF A CONFIRMATION OF POSITIVE RESULTS IS DESIRED, ACONFIRMATION TEST MUST BE REQUESTED BY THE PHYSICIAN AT ANADDITIONAL CHARGE TO THE PATIENT. CBC W/O [id number] 04:37:00* Test Item Value Reference Range Comments WHITE BLOOD CELL (test code=WBC) K/mm3 4.5-12.5 RED BLOOD CELL (test code=RBC) mill/mm3 4.0-5.8 HEMOGLOBIN (test code=HGB) 15.5 gram/dL 13.0-17.5 HEMATOCRIT (test code=HCT) 46.7 % 42.0-52.0 MEAN CELL VOLUME (test code=MCV) fL 80-98 MEAN CELL HGB (test code=MCH) picogram 27.0-33.0 MEAN CELL HGB CONCETRATION (test code=MCHC) gram/dL 33.0-36.0 RED CELL DISTRIBUTION WIDTH (test code=RDW) % 11.6-16.2 PLATELET COUNT (test code=PLT) K/mm3 150-450 MEAN PLATELET VOLUME (test code=MPV) fL 6.7-11.0 CBC W/O [id number] 04:37:00* Test Item Value Reference Range Comments WHITE BLOOD CELL (test code=WBC) 11.5 K/mm3 4.5-12.5 RED BLOOD CELL (test code=RBC) 5.07 mill/mm3 4.0-5.8 HEMOGLOBIN (test code=HGB) 15.5 gram/dL 13.0-17.5 HEMATOCRIT (test code=HCT) 46.7 % 42.0-52.0 MEAN CELL VOLUME (test code=MCV) 92.1 fL 80-98 MEAN CELL HGB (test code=MCH) 30.6 picogram 27.0-33.0 MEAN CELL HGB CONCETRATION (test code=MCHC) 33.2 gram/dL 33.0-36.0 RED CELL DISTRIBUTION WIDTH (test code=RDW) 12.5 % 11.6-16.2 PLATELET COUNT (test code=PLT) 251 K/mm3 150-450 MEAN PLATELET VOLUME (test code=MPV) 10.7 fL 6.7-11.0 - XR [facility] 1 [id number] 03:53:00 FAX: Ofelia Villalta DO [place]: [address]: REG Name: ARCELIA NATARAJAN [facility] : [birth year] Age/S: 33/M [facility] Unit #: [id number] Loc: V.RONNA [place] [address] Phys: Ofelia Villalta DO Acct: [id number] Dis Date: Status: REG ER PHONE #: [phone] Exam Date: 08/01/2018 0320 FAX #: [phone] Reason: CHEST PAIN EXAMS: CPT CODE: [id number] XR CHEST 1 V [id number] EXAM: - XR CHEST 1 V HISTORY: Chest pain. COMPARISON: None available time of interpre tation. FINDINGS: Single AP view of the chest is pro vided. Heart size and vascularity are within normal limits. The enmanuel gs are clear of focal consolidation. No effusion, pneumothorax, or acute osseous abnormality. IMPRESSION: No radiographic evidence of acute cardiopulmonary process. at 0353 Reported and si gned by: Celestino Nance MD CC: Ofelia Villalta DO Technologist: Mary Motta Trnscrd Date/Time/By: 08/01/2018 (0353) : By: [email or web address] PAGE 1 Signed Report
--- NOTE | 2018-12-17 12:16 | NUR ---
REMOVED DAMAGED CATHETER BAG AND REPLACED WITH NEW LEG BAG
== END 2018-12-17 13:10 | disposition home or self-care (01) ==
LOC: ER 11:55
DX: Z46.6 Encounter for fitting and adjustment of urinary device (principal); F41.9 Anxiety disorder, unspecified; F31.9 Bipolar disorder, unspecified
CPT/HCPCS: 99282